=== PATIENT | female | born 1970 | race Caucasian/White ===

== ENCOUNTER 2016-12-04 07:52 | Emergency (ER) | payer BC ==
[~2016-12-04] VITALS: Ht 162.6 cm; Wt 86.2 kg
[2016-12-04 07:55] VITALS: TEMP 36.7; Ht 162.6 cm; Wt 86.2 kg
[2016-12-04] MEDS ORDERED: KETOROLAC TROMETHAMINE 60 MG/2 ML VIAL IM STA (08:07)
[2016-12-04 08:44] LABS: PARTIAL THROMBOPLASTIN RATIO 1.1; PROTHROMBIN TIME (PATIENT) 10.5 SECONDS (9.0-12.0)
--- NOTE | 2016-12-04 09:15 | DIAGNOSTIC IMAGING REPORT ---
VENOUS DOPPLER RIGHT ARM UPPER EXTREMITY VENOUS DOPPLER HISTORY: Pain severe right arm pain Right COMPARISON STUDY: None. FINDINGS: The internal jugular vein is patent. There is normal flow within the subclavian vein. There is normal flow and compressibility within the left axillary, basilic, brachial, radial, ulnar, and visualized cephalic veins. IMPRESSION: No DVT within the upper extremity. Electronically signed by: Alejandro Hughes M.D. 12/04/2016 9:14 AM Dictated Date/Time: 12/04/2016 9:13 AM
[2016-12-04 09:21] VITALS: BP 116/51; PULSE 67; O2SAT 97
--- NOTE | 2016-12-04 09:53 | EMERGENCY ROOM VISIT NOTE ---
History First contact with patient: 07:53 Chief Complaint: ARM PAIN Stated Complaint: RIGHT ARM PAIN AND NUMBNESS History of Present Illness The patient is a 46 year old female who presents to the Emergency Room with complaints of right thumb pain with radiation up her right arm. The patient states last evening she started with pain in her right thumb and into her hand. Now it is radiating up her arm into her shoulder and neck. The patient states that her thumb and fingers are numb and tingly. The patient denies any injury. The patient is right-hand dominant. She does work on a computer all day. The patient denies any chest pain or shortness of breath. The patient denies any history of blood clots. The patient is a nonsmoker. Review of Systems 10 system review was performed and was negative unless stated otherwise history of present illness. Past Medical/Surgical History Foot surgery Social History Smoking Status: Never Smoker Alcohol Use: none Drug Use: none Marital Status: Housing Status: lives with family Occupation Status: employed Current/Historical Medications No Active Prescriptions or Reported Meds Allergies Coded Allergies: No Known Allergies (Unverified , 12/04/16) Physical Exam Vital Signs Date Time Temp Pulse Resp B/P (MAP) Pulse Ox O2 Delivery O2 Flow Rate FiO2 12/04/16 09:21 67 16 116/51 97 Room Air 12/04/16 07:55 36.7 106 18 157/96 98 Room Air Physical Exam GENERAL: 46-year-old white female appears uncomfortable secondary to pain. MENTAL Status: Alert and oriented 3. LUNGS: Clear auscultation without wheezes rales or rhonchi. CARDIAC: Regular rate and rhythm without murmur. Pulses is full and equal throughout. CERVICAL SPINE: No gross bony deformity noted. No erythema or edema noted. The patient is nontender to palpation over spinous processes. She is tender to palpation the paravertebral regions bilaterally. Full range of motion of the cervical spine. RIGHT ARM: No erythema or edema noted. Entire arm is mildly tender to palpation. RIGHT HAND: Patient has tenderness palpation over the thenar eminence of the thumb. Positive Tinel's. Medical Decision & Procedures ER Provider Diagnostic Interpretation: VENOUS DOPPLER RIGHT ARM UPPER EXTREMITY VENOUS DOPPLER HISTORY: Pain severe right arm pain Right COMPARISON STUDY: None. FINDINGS: The internal jugular vein is patent. There is normal flow within the subclavian vein. There is normal flow and compressibility within the left axillary, basilic, brachial, radial, ulnar, and visualized cephalic veins. IMPRESSION: No DVT within the upper extremity. Electronically signed by: Alejandro Hughes M.D. 12/04/2016 9:14 AM Dictated Date/Time: 12/04/2016 9:13 AM Laboratory Results Test 12/04/16 08:19 Prothrombin Time 10.5 SECONDS (9.0-12.0) Prothromb Time International Ratio 1.0 (0.9-1.1) Activated Partial Thromboplast Time 27.3 SECONDS (21.0-31.0) Partial Thromboplastin Ratio 1.1 Medications Administered Medications (Trade) Dose Ordered Sig/Lelo Route Start Time Stop Time Status Last Admin Dose Admin Ketorolac Tromethamine (Toradol Inj) 60 mg NOW STAT IM 12/04/16 08:07 12/04/16 08:09 DC 12/04/16 08:13 60 MG ED Course The patient was evaluated. The patient's EMR and medication list were reviewed. Coags were ordered. The patient was given Toradol 60 mg IM. Venous Doppler the right upper extremity was ordered and interpreted by the radiologist as above without any evidence of DVT. Coags were normal. The patient was reevaluated and was feeling much better. The patient was placed in a wrist lacer splint and discharged home in stable condition.. Medical Decision Differential diagnosis include DVT, superficial phlebitis, carpal tunnel syndrome, cervical radiculopathy Impression Primary Impression: Carpal tunnel syndrome, right Departure Information Dispostion Home / Self-Care Condition GOOD Prescriptions No Active Prescriptions or Reported Meds Referrals Greg Bowen M.D. (PCP) Forms HOME CARE DOCUMENTATION FORM, IMPORTANT VISIT INFORMATION Patient Instructions My [facility] Additional Instructions Wear the wrist splint except for bathing until pain is tolerable without it. Ibuprofen 6 mg every 6 hours with food. Ice to her wrist after any repetitive motion. Rest the arm as much as possible over the next 5 days. If symptoms are not improving recommend follow-up with your family doctor for further evaluation.
== END 2016-12-04 10:10 | disposition home or self-care (01) ==
LOC: C.EDB 07:53 → C.EDA 10:10
DX: G56.01 Carpal tunnel syndrome, right upper limb (principal)

== ENCOUNTER → 2017-02-27 | Outpatient (CLI) | payer BC ==
--- NOTE | 2017-02-27 13:49 | MAMMOGRAPHY REPORT ---
BILATERAL DIGITAL SCREENING MAMMOGRAM TOMOSYNTHESIS WITH CAD: 02/27/2017 CLINICAL HISTORY: Routine screening. Patient has no complaints. TECHNIQUE: Breast tomosynthesis in addition to standard 2D mammography was performed. Current study was also evaluated with a Computer Aided Detection (CAD) system. COMPARISON: Comparison is made to exams dated: 02/23/2016 mammogram, 02/09/2015 mammogram, 02/03/2014 ma mmogram, 12/16/2012 mammogram, 03/05/2011 ultrasound, and 03/05/2011 mammogram - [facility] enter. BREAST COMPOSITION: There are scattered areas of fibroglandular density in both breasts. FINDINGS: The parenchymal pattern is similar to prior mammograms. No new suspicious mass, architectu ral distortion or cluster of microcalcifications is seen. IMPRESSION: ACR BI-RADS CATEGORY 1: NEGATIVE There is no mammographic evidence of malignancy. A 1 year screening mammogram is recommended. The pa tient will receive written notification of the results. Approximately 10% of breast cancers are not detected with mammography. A negative mammographic report should not delay biopsy if a clinically suggestive mass is present. Sandy Montanez M.D. ay/:02/27/2017 08:40:15 Supervisor Hand Workers: Olivia Haynes, M, [facility] letter sent: Normal 1/2 BI-RADS Code: ACR BI-RADS Category 1: Negative
== END | disposition home or self-care (01) ==
LOC: C.MAMM 08:13
PROVIDERS: ATTEND Family Medicine
DX: Z12.31 Encounter for screening mammogram for malignant neoplasm of breast (principal)